=== PATIENT | male | born 1995 | race Caucasian/White ===

== ENCOUNTER 2017-09-28 19:27 | Emergency (ER) | payer SELFPAY ==
[~2017-09-28] VITALS: Ht 175.3 cm; Wt 49.7 kg
[2017-09-28 21:36] VITALS: BP 124/77
== END 2017-09-28 21:53 | disposition home or self-care (01) ==
LOC: EDBD 19:27 → EME 19:27
DX: T40.1X1A Poisoning by heroin, accidental (unintentional), initial encounter (principal); F17.200 Nicotine dependence, unspecified, uncomplicated
CPT/HCPCS: 99281; 99284; J2310

== ENCOUNTER 2017-12-08 18:22 | Emergency (ER) | payer SELFPAY ==
[~2017-12-08] VITALS: Ht 175.3 cm; Wt 59.1 kg
[2017-12-08 18:50] LABS: HEMATOCRIT 44.5 % (38.0-50.0); HEMOGLOBIN 15.3 G/DL (12.5-16.6); MCH 28.8 PG (29.0-34.0); MCHC 34.4 G/DL (30.0-36.0); MCV 83.8 FL (86-99); PLATELET COUNT 192 K/uL (156-360); RBC DIS.WIDTH-CV 12.3 % (11.8-14.6); RBC DIS.WIDTH-SD 37.2 % (39-53); RED BLOOD COUNT 5.31 M/uL (4.00-5.50); WHITE BLOOD COUNT 7.1 K/uL (4.1-10.2)
[2017-12-08 19:03] LABS: CHLORIDE 104 mEq/L (99-109); POTASSIUM 3.7 mEq/L (3.7-5.4); SODIUM 139 mEq/L (136-147)
[2017-12-08 19:05] LABS: GLUCOSE 192 mg/dL (70-99)
[2017-12-08 19:09] LABS: CREATININE 0.9 mg/dL (0.6-1.3); GFR ESTIMATE (CALCULATED) > 59 mL/min/ (58.99-99999)
[2017-12-08 19:10] LABS: UREA NITROGEN (BUN) 13 mg/dL (9-23)
[2017-12-08] MEDS ORDERED: NARCAN4 MG NS (19:45)
[2017-12-08 20:05] VITALS: BP 120/84
== END 2017-12-08 20:05 | disposition left against medical advice (07) ==
LOC: EME 18:22
PROVIDERS: Emergency Medicine
DX: T40.1X1A Poisoning by heroin, accidental (unintentional), initial encounter (principal); F17.200 Nicotine dependence, unspecified, uncomplicated
CPT/HCPCS: 80048; 85027; 99281; 99285; J2310

== ENCOUNTER 2018-03-01 09:57 | Emergency (ER) | payer SELFPAY ==
[~2018-03-01] VITALS: Ht 175.3 cm; Wt 58.6 kg
[~2018-03-01 09:57] MED LIST: NARCAN4 MG NS
[2018-03-01] MEDS ORDERED: BACTRIM,SEPT1 TABLET PO (11:19)
[2018-03-01 11:36] VITALS: BP 142/90
== END 2018-03-01 11:37 | disposition home or self-care (01) ==
LOC: EME 09:57
DX: L02.415 Cutaneous abscess of right lower limb (principal); F17.200 Nicotine dependence, unspecified, uncomplicated
CPT/HCPCS: 99281; 99283